=== PATIENT | female | born 1990 | race Two or more races ===

== ENCOUNTER 2016-12-09 18:59 | Emergency (ER) | payer MEDICAID ==
[~2016-12-09] VITALS: Ht 162.6 cm; Wt 65.8 kg
[~2016-12-09 18:59] MED LIST: ALBUPOW26; PREN-129
[2016-12-09 19:05] VITALS: BP 113/73
[2016-12-09 19:43] LABS: Basophils # (auto) 0.1 uL; Basophils % (auto) 0.3 % (0.0-2.0); Eosinophils # (auto) 0 uL; Eosinophils % (auto) 0.1 % (0.0-7.0); Hematocrit 41.2 % (36.0-46.0); Hemoglobin 14.4 g/dL (12.2-16.2); Lymphocytes # (auto) 2.1 uL; Lymphocytes % (auto) 10.2 % (10.0-50.0); Mean Corpuscular Hemoglobin 30.7 pg (28.0-32.0); Mean Corpuscular Volume 87.9 fL (80.0-100.0); Monocytes % (auto) 4.7 % (0.0-12.0); Neutrophils # (auto) 17.4 uL; Neutrophils % (auto) 84.7 % (37.0-80.0); Platelet Count (auto) 439 10^3/uL (140-450); Red Cell Distribution Width 13.1 % (11.6-16.0); White Blood Cell 20.5 10^3/uL (4.4-10.8)
[2016-12-09 19:58] LABS: INR 1.06 (0.9-1.15); Partial Thromboplastin Time 29.4 sec (22.64-33.71); Prothrombin Time 11.6 sec (9.37-12.3)
[2016-12-09 20:02] LABS: Albumin 3.2 g/dL (3.4-5.0); BUN/Creatinine Ratio 6.7; Calcium 8.6 mg/dL (8.5-10.1); Potassium 3.8 mmol/L (3.5-5.1)
[2016-12-09 20:04] LABS: Bilirubin, Total 0.8 mg/dL (0.2-1.0); Total Protein 7.9 g/dL (6.4-8.2)
== END 2016-12-09 21:40 | disposition left against medical advice (07) ==
LOC: ER 19:03
DX: R10.30 Lower abdominal pain, unspecified (principal); R42 Dizziness and giddiness; R11.2 Nausea with vomiting, unspecified; Z53.21 Procedure and treatment not carried out due to patient leaving prior to being seen by health care provider
CPT/HCPCS: 36415; 80053; 82150; 83690; 84702; 85025; 85610; 85730

== ENCOUNTER 2017-04-26 03:16 | Emergency (ER) | payer MEDICAID ==
[~2017-04-26] VITALS: Ht 162.6 cm; Wt 73.3 kg
[2017-04-26 03:45] VITALS: BP 133/97
[2017-04-26 04:14] LABS: Basophils # (auto) 0.1 uL; Basophils % (auto) 0.7 % (0.0-2.0); Eosinophils # (auto) 0.1 uL; Hematocrit 40.7 % (36.0-46.0); Hemoglobin 14.2 g/dL (12.2-16.2); Lymphocytes # (auto) 1.9 uL; Lymphocytes % (auto) 24.5 % (10.0-50.0); Mean Corpuscular Hemoglobin 30.6 pg (28.0-32.0); Mean Corpuscular Volume 87.6 fL (80.0-100.0); Mean Platelet Volume 7.4 fL (6.9-10.8); Monocytes # (auto) 0.6 uL; Monocytes % (auto) 7.5 % (0.0-12.0); Neutrophils # (auto) 5.3 uL; Neutrophils % (auto) 66.3 % (37.0-80.0); Nucleated Red Blood Cells % 0.1 %; Platelet Count (auto) 318 10^3/uL (140-450); Red Cell Distribution Width 14.1 % (11.8-14.3)
[2017-04-26] MEDS ORDERED: AZITHROMYCIN 250 MG TAB PO ONE (04:15)
[2017-04-26] MEDS ORDERED: cefTRIAXone SODIUM 250 MG VL IM ONE (04:15)
[2017-04-26 04:42] LABS: Bilirubin, Total 0.3 mg/dL (0.2-1.0); Potassium 3.3 mmol/L (3.5-5.1)
== END 2017-04-26 04:30 | disposition home or self-care (01) ==
LOC: ER 03:16
DX: N39.0 Urinary tract infection, site not specified (principal); A64 Unspecified sexually transmitted disease; J45.909 Unspecified asthma, uncomplicated; F12.10 Cannabis abuse, uncomplicated; Z90.79 Acquired absence of other genital organ(s)
CPT/HCPCS: 36415; 80053; 81002; 85025; 96372; 99284; J0696

== ENCOUNTER 2018-08-12 17:48 | Emergency (ER) | payer MEDICAID ==
[~2018-08-12] VITALS: Ht 162.6 cm; Wt 59.0 kg
[2018-08-12 17:53] VITALS: BP 149/101
[2018-08-12 18:31] LABS: Basophils # (auto) 0.1 uL; Basophils % (auto) 0.6 % (0.0-2.0); Eosinophils # (auto) 0.2 uL; Eosinophils % (auto) 2.2 % (0.0-7.0); Hematocrit 45.1 % (36.0-46.0); Hemoglobin 15.1 g/dL (12.2-16.2); Lymphocytes # (auto) 1.2 uL; Mean Corpuscular Hemoglobin 29.5 pg (28.0-32.0); Mean Corpuscular Hgb Conc. 33.5 g/dL (32.0-36.0); Monocytes # (auto) 0.6 uL; Monocytes % (auto) 5.1 % (0.0-12.0); Neutrophils # (auto) 9.1 uL; Neutrophils % (auto) 81.1 % (37.0-80.0); Platelet Count (auto) 388 10^3/uL (140-450); Red Blood Cells 5.13 10^6/uL (4.0-5.20); Red Cell Distribution Width 13.4 % (11.8-14.3); White Blood Cell 11.2 10^3/uL (4.4-10.8)
[2018-08-12 18:46] LABS: Albumin 3.5 g/dL (3.4-5.0); BUN/Creatinine Ratio 9.9; Calcium 8.6 mg/dL (8.5-10.1); Potassium 3.9 mmol/L (3.5-5.1)
[2018-08-12 18:49] LABS: Bilirubin, Total 0.4 mg/dL (0.2-1.0); Total Protein 7.9 g/dL (6.4-8.2)
== END 2018-08-12 20:30 | disposition left against medical advice (07) ==
LOC: ER 17:49
DX: R11.2 Nausea with vomiting, unspecified (principal); Z53.21 Procedure and treatment not carried out due to patient leaving prior to being seen by health care provider
CPT/HCPCS: 36415; 80053; 84702; 85025

== ENCOUNTER 2019-07-10 13:30 | Emergency (ER) | payer MEDICAID ==
[~2019-07-10] VITALS: Ht 162.6 cm; Wt 63.5 kg
[2019-07-10 14:11] VITALS: BP 145/94
== END 2019-07-10 15:33 | disposition left against medical advice (07) ==
LOC: ER 13:34
DX: R10.2 Pelvic and perineal pain (principal); Z53.21 Procedure and treatment not carried out due to patient leaving prior to being seen by health care provider

== ENCOUNTER 2020-01-26 02:40 | Emergency (ER) | payer MEDICAID ==
[~2020-01-26] VITALS: Ht 162.6 cm; Wt 61.2 kg
[2020-01-26] MEDS ORDERED: cloNIDine HCL 0.1 MG TAB PO ONE (03:15)
[2020-01-26 04:19] VITALS: BP 164/109
== END 2020-01-26 04:22 | disposition home or self-care (01) ==
LOC: ER 02:41
DX: S10.96XA Insect bite of unspecified part of neck, initial encounter (principal); L02.11 Cutaneous abscess of neck; J45.909 Unspecified asthma, uncomplicated; Z59.0 Homelessness; W57.XXXA Bitten or stung by nonvenomous insect and other nonvenomous arthropods, initial encounter; Y93.89 Activity, other specified; Y92.89 Other specified places as the place of occurrence of the external cause; Y99.8 Other external cause status

== ENCOUNTER 2020-04-25 15:07 | Emergency (ER) | payer MEDICAID ==
[~2020-04-25] VITALS: Ht 162.6 cm; Wt 63.5 kg
[2020-04-25 20:00] VITALS: BP 152/98
== END 2020-04-25 20:35 | disposition home or self-care (01) ==
LOC: ER 15:07
DX: S10.96XA Insect bite of unspecified part of neck, initial encounter (principal); L02.11 Cutaneous abscess of neck; B36.0 Pityriasis versicolor; F17.210 Nicotine dependence, cigarettes, uncomplicated; W57.XXXA Bitten or stung by nonvenomous insect and other nonvenomous arthropods, initial encounter; Y93.89 Activity, other specified; Y92.89 Other specified places as the place of occurrence of the external cause; Y99.8 Other external cause status
CPT/HCPCS: 81025

== ENCOUNTER 2020-06-16 15:46 | Emergency (ER) | payer MEDICAID ==
[~2020-06-16] VITALS: Ht 170.2 cm; Wt 90.7 kg
[2020-06-16] MEDS ORDERED: SODIUM CHLORIDE 0.9% 1,000 ML IV ONE ×2 (16:15→18:00)
[2020-06-16 16:43] LABS: Basophils # (auto) 0 10 ^3/uL (0-0.2); Basophils % (auto) 0.3 % (0.0-2.0); Eosinophils # (auto) 0 10 ^3/uL (0-0.8); Eosinophils % (auto) 0.1 % (0.0-7.0); Hematocrit 32.6 % (36.0-46.0); Hemoglobin 10.6 g/dL (12.2-16.2); Lymphocytes # (auto) 0.8 10 ^3/uL (0.4-5.4); Lymphocytes % (auto) 7.6 % (10.0-50.0); Mean Corpuscular Hemoglobin 24.3 pg (28.0-32.0); Mean Corpuscular Hgb Conc. 32.5 g/dL (32.0-36.0); Mean Corpuscular Volume 74.9 fL (80.0-100.0); Monocytes # (auto) 1.3 10 ^3/uL (0-1.3); Monocytes % (auto) 13.3 % (0.0-12.0); Neutrophils # (auto) 7.9 10 ^3/uL (1.6-8.6); Neutrophils % (auto) 78.7 % (37.0-80.0); Nucleated Red Blood Cells % 0.1 %; Platelet Count (auto) 487 10^3/uL (140-450); Red Blood Cells 4.35 10^6/uL (4.0-5.20); Red Cell Distribution Width 16.1 % (11.8-14.3)
[2020-06-16 16:52] LABS: Albumin 3.1 g/dL (3.4-5.0); Amylase 51 U/L (25-115); Anion Gap 5 (5-15); Blood Urea Nitrogen 5 mg/dL (7-18); Calcium 8.7 mg/dL (8.5-10.1); Carbon Dioxide 29 mmol/L (21-32); Chloride 99 mmol/L (98-107); Glucose 102 mg/dL (74-106); Lipase 106 U/L (73-393); Potassium 3.6 mmol/L (3.5-5.1); Sodium 133 mmol/L (136-145)
[2020-06-16 16:57] LABS: Alanine Aminotransferase 38 U/L (13-56); Alkaline Phosphatase 157 U/L (45-117); Aspartate Aminotransferase 23 U/L (15-37); BUN/Creatinine Ratio 6.4; Bilirubin, Total 0.2 mg/dL (0.2-1.0); GFR African American 114 mL/min; GFR Non-African American 94 mL/min; Total Protein 8.5 g/dL (6.4-8.2)
[2020-06-16 17:03] LABS: Beta HCG, Quantitative < 1 mlU/mL (1-3); Thyroid Stimulating Hormone 0.13 uIU/mL (0.358-3.74)
[2020-06-16] MEDS ORDERED: ACETAMINOPHEN 325 MG TAB PO ONE (17:15)
[2020-06-16] MEDS ORDERED: ONDANSETRON ODT 4 MG TAB PO ONE (18:00)
[2020-06-16] MEDS ORDERED: PANTOPRAZOLE 40 MG TAB PO ONE (18:00)
[2020-06-16] MEDS ORDERED: DOXYCYCLINE 100 MG TAB/CAP PO ONE (18:00)
[2020-06-16] MEDS ORDERED: cefTRIAXone SOD 1,000 MG VL IM ONE (18:00)
[2020-06-16] MEDS ORDERED: LORazepam 0.5 MG TAB PO ONE (18:00)
[2020-06-16 19:12] VITALS: BP 136/85
[2020-06-16 21:45] LABS: Urine Bacteria MOD /hpf (None Seen); Urine Blood Negative /uL (Negative); Urine Budding Yeast FEW /hpf (None Seen); Urine Mucus FEW (None Seen); Urine Specific Gravity 1.013 (1.001-1.035); Urine WBC 26 /hpf (0 - 5)
[2020-06-16 21:46] LABS: Barbiturate Scree,Urine NEGATIVE (NEGATIVE); Benzodiazephine Screen, Urine NEGATIVE (NEGATIVE); Cannabinoid Screen, Urine NEGATIVE (NEGATIVE); Cocaine Screen, Urine NEGATIVE (NEGATIVE); Opiate Scree,Urine NEGATIVE (NEGATIVE); Phencyclidine Screen, Urine NEGATIVE (NEGATIVE)
[2020-06-16 22:16] LABS: Amphetamine Screen, Urine POSITIVE (NEGATIVE)
== END 2020-06-16 20:41 | disposition home or self-care (01) ==
LOC: ER 15:46 → EDBD 15:46 → ER 20:41
DX: U07.1 COVID-19 (principal); K59.00 Constipation, unspecified; D64.9 Anemia, unspecified; K29.70 Gastritis, unspecified, without bleeding; E86.0 Dehydration; F15.10 Other stimulant abuse, uncomplicated; R07.9 Chest pain, unspecified; F17.210 Nicotine dependence, cigarettes, uncomplicated; Z90.49 Acquired absence of other specified parts of digestive tract
CPT/HCPCS: 36415; 71045; 74176; 80053; 80307; 81001; 82150; 83690; 83880; 84443; 84484; 84702; 85025; 87426; 93005; 96360; 96361; 96372; 99285; J0696; J7030; Q0162

== ENCOUNTER → 2020-09-16 | Emergency (ER) | payer MEDICAID ==
[~2020-09-16] VITALS: Ht 162.6 cm; Wt 61.2 kg
[2020-09-16 01:25] VITALS: BP 149/99
[2020-09-16 02:52] LABS: Eosinophils # (auto) 0.2 10 ^3/uL (0-0.8); Monocytes # (auto) 0.5 10 ^3/uL (0-1.3)
[2020-09-16 02:54] LABS: Basophils # (auto) 0.1 10 ^3/uL (0-0.2); Basophils % (auto) 1.1 % (0.0-2.0); Eosinophils % (auto) 3.1 % (0.0-7.0); Hematocrit 34.7 % (36.0-46.0); Hemoglobin 11.1 g/dL (12.2-16.2); Lymphocytes # (auto) 1.4 10 ^3/uL (0.4-5.4); Lymphocytes % (auto) 22.1 % (10.0-50.0); Mean Corpuscular Hemoglobin 23.7 pg (28.0-32.0); Neutrophils # (auto) 4.3 10 ^3/uL (1.6-8.6); Neutrophils % (auto) 66.7 % (37.0-80.0); Platelet Count (auto) 468 10^3/uL (140-450); Red Blood Cells 4.69 10^6/uL (4.0-5.20); White Blood Cell 6.5 10^3/uL (4.4-10.8)
[2020-09-16 03:05] LABS: Albumin 3.7 g/dL (3.4-5.0); Anion Gap 8 (5-15); Blood Urea Nitrogen 11 mg/dL (7-18); Calcium 8.6 mg/dL (8.5-10.1); Carbon Dioxide 27 mmol/L (21-32); Chloride 104 mmol/L (98-107); Glucose 146 mg/dL (74-106); Magnesium 2.1 mg/dL (1.6-2.6); Potassium 4.3 mmol/L (3.5-5.1); Sodium 139 mmol/L (136-145)
[2020-09-16 03:07] LABS: GFR African American 122 mL/min; GFR Non-African American 101 mL/min
[2020-09-16 03:23] LABS: Alanine Aminotransferase 21 U/L (13-56); Alkaline Phosphatase 148 U/L (45-117); Aspartate Aminotransferase 16 U/L (15-37); Bilirubin, Total 0.2 mg/dL (0.2-1.0); Total Protein 8.1 g/dL (6.4-8.2)
[2020-09-16 05:24] LABS: BUN/Creatinine Ratio 15.1
== END | disposition left against medical advice (07) ==
LOC: ER 01:19
DX: R07.89 Other chest pain (principal); Z53.21 Procedure and treatment not carried out due to patient leaving prior to being seen by health care provider
CPT/HCPCS: 36415; 80053; 83735; 84443; 84484; 85025

== ENCOUNTER 2021-10-09 11:24 | Emergency (ER) | payer MEDICAID ==
[~2021-10-09] VITALS: Ht 162.6 cm; Wt 61.2 kg
[2021-10-09 12:18] LABS: Urine Bacteria FEW /hpf (None Seen); Urine Blood TRACE /uL (Negative); Urine Mucus FEW (None Seen); Urine WBC 332 /hpf (0 - 5)
[2021-10-09 12:29] VITALS: BP 140/93
[2021-10-09] MEDS ORDERED: cefTRIAXone SOD 1,000 MG VL IM ONE (13:00)
[2021-10-09] MEDS ORDERED: KETOROLAC TROMETH 60MG/2ML VIAL IM ONE (13:00)
[2021-10-09 13:18] LABS: Basophils # (auto) 0 10 ^3/uL (0-0.2); Basophils % (auto) 0.4 % (0.0-2.0); Eosinophils # (auto) 0.1 10 ^3/uL (0-0.8); Hematocrit 36.8 % (36.0-46.0); Monocytes # (auto) 0.8 10 ^3/uL (0-1.3)
[2021-10-09 13:20] LABS: Eosinophils % (auto) 0.9 % (0.0-7.0); Hemoglobin 11.6 g/dL (12.2-16.2); Lymphocytes % (auto) 8.5 % (10.0-50.0); Mean Corpuscular Hemoglobin 22.9 pg (28.0-32.0); Mean Corpuscular Hgb Conc. 31.6 g/dL (32.0-36.0); Monocytes % (auto) 6.7 % (0.0-12.0); Neutrophils # (auto) 10.1 10 ^3/uL (1.6-8.6); Neutrophils % (auto) 83.5 % (37.0-80.0); Red Blood Cells 5.07 10^6/uL (4.0-5.20); Red Cell Distribution Width 18.1 % (11.8-14.3); White Blood Cell 12.1 10^3/uL (4.4-10.8)
[2021-10-09 13:37] LABS: Albumin 3.3 g/dL (3.4-5.0); Calcium 8.9 mg/dL (8.5-10.1); Potassium 4.3 mmol/L (3.5-5.1)
[2021-10-09 13:41] LABS: BUN/Creatinine Ratio 11.7
[2021-10-09 13:42] LABS: Bilirubin, Total 0.3 mg/dL (0.2-1.0)
[2021-10-09 13:43] LABS: Total Protein 7.7 g/dL (6.4-8.2)
[2021-10-09 13:48] LABS: Mean Corpuscular Volume 72.6 fL (80.0-100.0)
[2021-10-09] MEDS ORDERED: SODIUM CHLORIDE 0.9% 1,000 ML IV ONE (14:00)
== END 2021-10-09 17:45 | disposition home or self-care (01) ==
LOC: ER 11:24
DX: N39.0 Urinary tract infection, site not specified (principal); N20.0 Calculus of kidney; N61.1 Abscess of the breast and nipple; J45.909 Unspecified asthma, uncomplicated; F17.210 Nicotine dependence, cigarettes, uncomplicated; Z90.49 Acquired absence of other specified parts of digestive tract; Z79.899 Other long term (current) drug therapy
CPT/HCPCS: 36415; 74176; 76642; 80053; 81001; 81025; 83605; 85025; 96372; 99284; J1885

== ENCOUNTER 2022-05-30 20:05 | Emergency (ER) | payer MEDICAID | END 2022-05-30 21:50 | disposition left against medical advice (07) | LOC: ER 20:05 | DX: R10.9 Unspecified abdominal pain (principal); Z53.21 Procedure and treatment not carried out due to patient leaving prior to being seen by health care provider ==

== ENCOUNTER 2022-05-31 08:19 | Inpatient (IN) | payer MEDICAID ==
[~2022-05-31] VITALS: Ht 160 cm; Wt 87.0 kg
[2022-05-31] MEDS ORDERED: cefTRIAXone 1GM/50ML D5W 50 ML IV ONE (08:45)
[2022-05-31] MEDS ORDERED: SODIUM CHLORIDE 0.9% 1,000 ML IVB ONE (08:45)
[2022-05-31 09:04] LABS: Eosinophils # (auto) 0 10 ^3/uL (0-0.8); Lymphocytes # (auto) 0.7 10 ^3/uL (0.4-5.4); Lymphocytes % (auto) 4.4 % (10.0-50.0); Monocytes # (auto) 1.2 10 ^3/uL (0-1.3)
[2022-05-31 09:06] LABS: Basophils # (auto) 0.1 10 ^3/uL (0-0.2); Basophils % (auto) 0.4 % (0.0-2.0); Hematocrit 37.7 % (36.0-46.0); Hemoglobin 12.4 g/dL (12.2-16.2); Mean Corpuscular Hemoglobin 26.3 pg (28.0-32.0); Mean Corpuscular Hgb Conc. 32.9 g/dL (32.0-36.0); Monocytes % (auto) 7.4 % (0.0-12.0); Neutrophils # (auto) 14.5 10 ^3/uL (1.6-8.6); Neutrophils % (auto) 87.8 % (37.0-80.0); Red Cell Distribution Width 15.8 % (11.8-14.3); White Blood Cell 16.5 10^3/uL (4.4-10.8)
[2022-05-31 09:18] LABS: Albumin 3.4 g/dL (3.4-5.0); Calcium 8.8 mg/dL (8.5-10.1); Potassium 3.5 mmol/L (3.5-5.1)
[2022-05-31 09:21] LABS: BUN/Creatinine Ratio 7.4; Bilirubin, Total 0.6 mg/dL (0.2-1.0); Total Protein 7.8 g/dL (6.4-8.2)
[2022-05-31 11:16] LABS: Urine Bacteria FEW /hpf (None Seen); Urine Blood TRACE /uL (Negative); Urine WBC 97 /hpf (0 - 5); Urine WBC Clumps PRESENT /hpf (None Seen)
[2022-05-31] MEDS ORDERED: ONDANSETRON HCL 4 MG/2 ML VIAL IV ONE (12:00)
[2022-05-31] MEDS ORDERED: MORPHINE SULFATE 4 MG/ML SYR/VIAL IV ONE (12:00)
[2022-05-31] MEDS ORDERED: KETOROLAC TROMETH 30 MG/ML 1ML VIAL IV ONE (13:00)
[2022-05-31] MEDS ORDERED: ACETAMINOPHEN 325 MG TAB PO PRN (13:00)
[2022-05-31] MEDS ORDERED: HYDROcodone-ACET 5/325MG TAB PO PRN (13:00)
[2022-05-31] MEDS ORDERED: ONDANSETRON HCL 4 MG/2 ML VIAL IV PRN (13:00)
[2022-05-31] MEDS ORDERED: SODIUM CHLORIDE 0.9% 1,000 ML IV ONE (13:30)
[2022-05-31] MEDS: SODIUM CHLORIDE 0.9% 1,000 ML IV SCH ×2 (14:49→21:20)
[2022-05-31] MEDS: ENOXAPARIN SOD 40 MG/0.4 ML SYRINGE SC SCH (14:49)
[2022-05-31 17:05] VITALS: BP 108/58
[2022-05-31 17:43] VITALS: BP 108/58
[2022-05-31] MEDS: KETOROLAC TROMETH 30 MG/ML 1ML VIAL IV PRN (20:03)
[2022-05-31 20:21] VITALS: BP 108/58
[2022-05-31 22:00] VITALS: BP 93/45
[2022-06-01 05:21] LABS: Basophils # (auto) 0 10 ^3/uL (0-0.2); Basophils % (auto) 0.3 % (0.0-2.0); Eosinophils # (auto) 0 10 ^3/uL (0-0.8); Eosinophils % (auto) 0.4 % (0.0-7.0); Hematocrit 33.1 % (36.0-46.0); Hemoglobin 10.7 g/dL (12.2-16.2); Lymphocytes # (auto) 0.8 10 ^3/uL (0.4-5.4); Lymphocytes % (auto) 8.7 % (10.0-50.0); Mean Corpuscular Hemoglobin 26.3 pg (28.0-32.0); Mean Corpuscular Hgb Conc. 32.2 g/dL (32.0-36.0); Mean Corpuscular Volume 81.5 fL (80.0-100.0); Monocytes % (auto) 10.2 % (0.0-12.0); Neutrophils # (auto) 7.7 10 ^3/uL (1.6-8.6); Neutrophils % (auto) 80.4 % (37.0-80.0); Red Blood Cells 4.07 10^6/uL (4.0-5.20); Red Cell Distribution Width 16.1 % (11.8-14.3); White Blood Cell 9.5 10^3/uL (4.4-10.8)
[2022-06-01 05:40] LABS: Albumin 2.7 g/dL (3.4-5.0); Calcium 7.9 mg/dL (8.5-10.1); Potassium 3.7 mmol/L (3.5-5.1)
[2022-06-01 05:45] LABS: Bilirubin, Total 0.7 mg/dL (0.2-1.0); Total Protein 6.1 g/dL (6.4-8.2)
[2022-06-01] MEDS: SODIUM CHLORIDE 0.9% 1,000 ML IV SCH ×2 (06:34→14:28)
[2022-06-01] MEDS: KETOROLAC TROMETH 30 MG/ML 1ML VIAL IV PRN ×2 (06:34→12:37)
[2022-06-01 08:00] VITALS: BP 112/72
[2022-06-01 08:51] VITALS: BP 112/72
[2022-06-01] MEDS ORDERED: cefTRIAXone 1GM/50ML D5W 50 ML IV SCH (09:00)
[2022-06-01] MEDS: ENOXAPARIN SOD 40 MG/0.4 ML SYRINGE SC SCH (11:29)
[2022-06-01 12:40] VITALS: BP 128/81
[2022-06-01] MEDS ORDERED: HYDROcodone-ACET 5/325MG TAB PO PRN (14:00)
[2022-06-01] MEDS ORDERED: MORPHINE SULFATE INJ 2 MG/ml SYRG IV PRN (14:00)
== END 2022-06-01 15:31 | disposition left against medical advice (07) | DRG 463 ==
LOC: ER 08:19 → OVERFLOW 12:56 → EAST 17:01
PROVIDERS: ADMIT Nurse Practitioner Family; ATTEND Nurse Practitioner Family
DX: N10 Acute pyelonephritis (principal); E87.1 Hypo-osmolality and hyponatremia; F17.210 Nicotine dependence, cigarettes, uncomplicated; J45.909 Unspecified asthma, uncomplicated; R73.9 Hyperglycemia, unspecified; R74.8 Abnormal levels of other serum enzymes; Z20.822 Contact with and (suspected) exposure to COVID-19; Z53.29 Procedure and treatment not carried out because of patient's decision for other reasons; Z80.9 Family history of malignant neoplasm, unspecified; Z82.49 Family history of ischemic heart disease and other diseases of the circulatory system; Z83.3 Family history of diabetes mellitus; Z90.49 Acquired absence of other specified parts of digestive tract
CPT/HCPCS: 36415; 74176; 80053; 81001; 81025; 83036; 83605; 83690; 85025; 87040; 87086; 87426; 96365; 96372; 96375; G0378; J0696; J1885; J2405

== ENCOUNTER 2022-06-03 03:26 | Emergency (ER) | payer MEDICAID ==
[~2022-06-03] VITALS: Ht 162.6 cm; Wt 67.0 kg
[2022-06-03 03:26] VITALS: BP 158/111
[2022-06-03 05:01] LABS: Calcium 8.9 mg/dL (8.5-10.1); Potassium 3.3 mmol/L (3.5-5.1)
[2022-06-03 05:04] LABS: Albumin 3.1 g/dL (3.4-5.0); BUN/Creatinine Ratio 9.4
[2022-06-03 05:07] LABS: Bilirubin, Total 0.3 mg/dL (0.2-1.0); Total Protein 8.3 g/dL (6.4-8.2)
[2022-06-03 06:32] LABS: Basophils # (auto) 0 10 ^3/uL (0-0.2); Eosinophils # (auto) 0.2 10 ^3/uL (0-0.8); Lymphocytes # (auto) 1.4 10 ^3/uL (0.4-5.4); Monocytes # (auto) 0.6 10 ^3/uL (0-1.3)
[2022-06-03 06:39] LABS: Basophils % (auto) 0.4 % (0.0-2.0); Eosinophils % (auto) 2.8 % (0.0-7.0); Hematocrit 34.6 % (36.0-46.0); Hemoglobin 11.5 g/dL (12.2-16.2); Lymphocytes % (auto) 19.9 % (10.0-50.0); Mean Corpuscular Hemoglobin 26.5 pg (28.0-32.0); Mean Corpuscular Hgb Conc. 33.3 g/dL (32.0-36.0); Mean Corpuscular Volume 79.5 fL (80.0-100.0); Monocytes % (auto) 8.1 % (0.0-12.0); Neutrophils # (auto) 4.9 10 ^3/uL (1.6-8.6); Neutrophils % (auto) 68.8 % (37.0-80.0); Red Blood Cells 4.35 10^6/uL (4.0-5.20); Red Cell Distribution Width 16.1 % (11.8-14.3); White Blood Cell 7.2 10^3/uL (4.4-10.8)
== END 2022-06-03 09:47 | disposition left against medical advice (07) ==
LOC: ER 03:26
DX: M54.59 Other low back pain (principal); R30.0 Dysuria; Z53.21 Procedure and treatment not carried out due to patient leaving prior to being seen by health care provider
CPT/HCPCS: 36415; 80053; 85025

== ENCOUNTER 2022-07-24 03:27 | Emergency (ER) | payer MEDICAID ==
[~2022-07-24] VITALS: Ht 162.6 cm; Wt 63.6 kg
[2022-07-24 03:31] VITALS: BP 130/94
== END 2022-07-24 05:55 | disposition left against medical advice (07) ==
LOC: ER 03:27
DX: T19.2XXA Foreign body in vulva and vagina, initial encounter (principal); Z53.21 Procedure and treatment not carried out due to patient leaving prior to being seen by health care provider; W22.8XXA Striking against or struck by other objects, initial encounter; Y93.89 Activity, other specified; Y92.89 Other specified places as the place of occurrence of the external cause; Y99.8 Other external cause status

== ENCOUNTER 2023-12-11 14:37 | Emergency (ER) | payer MEDICAID ==
[~2023-12-11] VITALS: Ht 162.6 cm; Wt 77.3 kg
[~2023-12-11 14:37] MED LIST changes: +DOXY-286 PO; +NITR-87 PO
[2023-12-11 15:20] VITALS: BP 143/89; RESP 16; TEMP 98; O2SAT 97
[2023-12-11 17:25] LABS: Urine Bacteria FEW /hpf (None Seen); Urine Blood Negative /uL (Negative); Urine Clarity Clear (Clear); Urine Color Light-Yellow (Yellow); Urine Protein, UAD Negative (Negative); Urine Specific Gravity 1.034 (1.001-1.035); Urine Urobilinogen Normal (Negative); Urine WBC 4 /hpf (0 - 5)
[2023-12-11 17:32] LABS: Amphetamine Screen, Urine Pos (NEGATIVE)
[2023-12-11 17:33] LABS: Barbiturate Scree,Urine Neg (NEGATIVE); Benzodiazephine Screen, Urine Neg (NEGATIVE); Cannabinoid Screen, Urine Neg (NEGATIVE); Cocaine Screen, Urine Neg (NEGATIVE); Opiate Scree,Urine Neg (NEGATIVE); Phencyclidine Screen, Urine Neg (NEGATIVE)
[2023-12-11 18:26] VITALS: PULSE 94
[2023-12-11] MEDS ORDERED: ACET-1080 PO (18:28)
[2023-12-11] MEDS: ACETAMINOPHEN 500 MG TAB PO ONE (18:29)
== END 2023-12-11 18:34 | disposition home or self-care (01) ==
LOC: ER 14:37
DX: O26.891 Other specified pregnancy related conditions, first trimester (principal); R10.2 Pelvic and perineal pain; S39.011A Strain of muscle, fascia and tendon of abdomen, initial encounter; R73.9 Hyperglycemia, unspecified; J45.909 Unspecified asthma, uncomplicated; F17.210 Nicotine dependence, cigarettes, uncomplicated; F12.10 Cannabis abuse, uncomplicated; F15.10 Other stimulant abuse, uncomplicated; Z90.49 Acquired absence of other specified parts of digestive tract; Z79.899 Other long term (current) drug therapy; Z3A.01 Less than 8 weeks gestation of pregnancy; X50.0XXA Overexertion from strenuous movement or load, initial encounter; Y93.89 Activity, other specified; Y92.89 Other specified places as the place of occurrence of the external cause; Y99.8 Other external cause status
CPT/HCPCS: 36415; 76801; 76817; 80307; 81001; 81025; 84702

== ENCOUNTER 2024-04-18 04:18 | Observation (INO) | payer MEDICAID ==
[~2024-04-18 04:18] MED LIST changes: +ACET-1080 PO
== END 2024-04-18 04:26 | disposition left against medical advice (07) ==
LOC: LDRP 04:18
PROVIDERS: ADMIT Obstetrics & Gynecology; ATTEND Obstetrics & Gynecology
DX: O46.92 Antepartum hemorrhage, unspecified, second trimester (principal); Z3A.24 24 weeks gestation of pregnancy

== ENCOUNTER 2024-05-20 09:59 | Observation (INO) | payer MEDICAID ==
[2024-05-20] MEDS ORDERED: LACTATED RINGER'S 1,000 ML IV SCH (10:15)
[2024-05-20] MEDS ORDERED: DEXTROSE (50%) 50ML SYRG IV PRN (10:15)
[2024-05-20] MEDS: MAGNESIUM SULFATE 100 ML IV ONE (10:27)
[2024-05-20] MEDS: BETAMETHASONE ACET (30mg/5ml) 5ml Vial 6mg/ml IM ONE (10:29)
[2024-05-20] MEDS ORDERED: LORazepam 2MG/ML-1ML VIAL IV ONE (10:30)
[2024-05-20] MEDS: InsuLIN REG 1unit/0.01ml Soln (100units/ml) SC SCH (10:45)
[2024-05-20] MEDS: MAGNESIUM SULFATE 40MG/ML 1,000 ML IV SCH (10:48)
[2024-05-20] MEDS ORDERED: PREN-96 PO (11:05)
[2024-05-20 11:06] LABS: Basophils # (auto) 0 10 ^3/uL (0-0.2); Basophils % (auto) 0.4 % (0.0-2.0); Eosinophils # (auto) 0.1 10 ^3/uL (0-0.8); Eosinophils % (auto) 1.4 % (0.0-7.0); Hematocrit 37.1 % (36.0-46.0); Hemoglobin 12.7 g/dL (12.2-16.2); Lymphocytes # (auto) 1.2 10 ^3/uL (0.4-5.4); Lymphocytes % (auto) 18.4 % (10.0-50.0); Mean Corpuscular Hemoglobin 31.3 pg (28.0-32.0); Mean Corpuscular Hgb Conc. 34.2 g/dL (32.0-36.0); Mean Corpuscular Volume 91.6 fL (80.0-100.0); Monocytes # (auto) 0.4 10 ^3/uL (0-1.3); Monocytes % (auto) 6.9 % (0.0-12.0); Neutrophils # (auto) 4.6 10 ^3/uL (1.6-8.6); Neutrophils % (auto) 72.9 % (37.0-80.0); Nucleated Red Blood Cells % 0.1 %; Platelet Count (auto) 265 10^3/uL (140-450); Red Blood Cells 4.05 10^6/uL (4.0-5.20); Red Cell Distribution Width 13.9 % (11.8-14.3); White Blood Cell 6.3 10^3/uL (4.4-10.8)
[2024-05-20] MEDS ORDERED: INSUINJ3 SC (11:06)
[2024-05-20 11:21] LABS: Alanine Aminotransferase 180 U/L (7-40); Albumin 3.2 g/dL (3.2-4.8); Alkaline Phosphatase 276 U/L (46-116); Anion Gap 7 (5-15); Aspartate Aminotransferase 110 U/L (13-40); BUN/Creatinine Ratio 10.8 (10.0-20.0); Bilirubin, Total 0.3 mg/dL (0.2-1.0); Blood Urea Nitrogen 7 mg/dL (9-23); Calcium 9.5 mg/dL (8.7-10.4); Carbon Dioxide 21 mmol/L (20-31); Chloride 104 mmol/L (98-107); Glucose 358 mg/dL (74-106); Potassium 4.1 mmol/L (3.5-5.1); Sodium 132 mmol/L (136-145); Total Protein 6.3 g/dL (5.7-8.2)
[2024-05-20] MEDS ORDERED: MAGNESIUM SULFATE 40MG/ML 1,000 ML IV ONE (11:22)
[2024-05-20] MEDS ORDERED: MAGNESIUM SULFATE 100 ML IV ONE (11:22)
--- NOTE | 2024-05-20 11:27 | DVH ---
Procedure: US OB ULTRASOUND COMP GTR 14 WKS 05/20/2024 10:26 AM HISTORY: Vaginal blled, labor COMPARISON: US OB ULTRASOUND COMP LESS 14WKS on DOS: 12/11/23 TECHNIQUE: Sonogram of the gravid uterus was performed. FINDINGS: Single living intrauterine gestation. Presentation: Cephalic Placenta: Posterior heart rate: 167 bpm YOLANDA: 12.9 cm Maternal cervix: Closed, 4 cm in length in the transabdominal study Other: Fluid noted in the vaginal cuff. The following measurements were obtained: BPD: 7 cm corresponding to 28 weeks and 2 days HC: 26.3 cm corresponding to 28 weeks and 4 days AC: 28.2 cm corresponding to 32 weeks and 2 days FL: 5.2 cm corresponding to 27 weeks and 4 days Average ultrasound age: 28 weeks and 5 days GABRIELA by ultrasound: 08/07/2024 Estimated weight: 1521 g corresponding to 90th percentile IMPRESSION: 1. Single currently living intrauterine gestation, as described above. 2. Estimated weight of 1521 g. 3. Posterior placenta with no evidence for previa or abruption. 4. Moderate amount of fluid is seen in the vaginal cuff. The cervix is closed measuring 4 cm in lengt h in the transabdominal study.
[2024-05-20 11:31] LABS: Uric Acid 2.5 mg/dL (3.1-7.8)
[2024-05-20 11:32] LABS: INR 0.92 (0.9-1.15); Partial Thromboplastin Time 27.6 SEC (24.5-34.5); Prothrombin Time 9.8 sec (9.3-11.8)
[2024-05-20] MEDS: ceFAZolin 2 GM/D5W50ml 50 ML IV ONE (11:45)
[2024-05-20 11:46] LABS: Urine Bacteria None Seen /hpf (None Seen)
[2024-05-20] MEDS ORDERED: ACCU-CHEK COMFORT CURVE STRIP VI SCH (12:00)
--- NOTE | 2024-05-20 12:03 | DVHHP2 ---
OB CC & HPI Date Date of Admission: May 20, 2024 Patient Identification: : 7 Para: 4 EDC: Aug 05, 2024 EGA: 29WKS Chief Complaints: Reason for admission: IUP - Admission Nurse Assessment Rev: No History of Present Complaints PT IS ADMITTED FOR PTL,NO ROM ,PT STATES SHE SEES A FEMALE DOCTOR IN [place]. HGBA1C IS 9.8 AND SHE IS PREGEST DM BUT WAS NOT AWARE.SHE HAS HEP C NOT TREATED. PT WAS TREATED FOR SYPHILIS X3 INJECTIONS RECENTLY.SHE IS A METH USER AND NONCOMPLIANT, HER ULTRASOUND REVEALS EFW OF 1521G ,WITH 4CM CERVIX,VX AND YOLANDA OF 13CM Past Medical History Cardiac: No pertinent Hx Pulmonary: No pertinent Hx Central Nervous System: No pertinent Hx GI: No pertinent Hx Hemotology/Oncology: No pertinent Hx Hepatobiliary: No pertinent Hx Psychiatric: No pertinent Hx Musculoskeletal: No pertinent Hx Rheumotologic: No pertinent Hx Infectious Disease: No peritnent Hx ENT: No pertinent Hx Renal/: No pertinent Hx Endocrine: No pertinent Hx Dermatology: No pertinent Hx Others PREGEST DM,HEP C,PREG DM,SYPHILIS POS , TREATED Past Surgical History: No pertinent Hx OB History OB History Care: None Ultrasounds: No ultrasounds, Normal mid trimester US Obstetrical Complications: Gestational Diabetes, Other (PREGEST DM) Allergies: Coded Allergies: No Known Drug Allergy (Verified Allergy, Unknown, 04/05/24) Home Meds Active Scripts Acetaminophen (Tylenol 8 Hour Arthritis) 650 Mg Tab, 650 MG PO TID, #30 TAB Prov:MERCEDEZ PIERSON 12/11/23 Reported Medications Insulin Regular (Human) (Humulin R U-500 (Concentr) 500 Unit/Ml Inj, 12 UNIT SC AC, INJ 05/20/24 Vit W/ Ferrous Fumara () Tab, DAILY 04/21/12 Albuterol (Albuterol) Pow 11/27/09 Current Medications Current Medications Medications (Trade) Dose Ordered Sig/Lashell Route PRN Reason Start Time Stop Time Status Last Admin Lactated Ringer's 1,000 ml @ 125 mls/hr Q8H IV 05/20/24 10:15 Diagnostic Test (Pha) (Accu-Chek Comfort Curve T) 1 strip IQ4HR 05/20/24 12:00 Insulin Human Regular (InsuLIN R) IQ4HR SC 05/20/24 12:00 05/20/24 10:45 Dextrose 50 ml UD PRN IV Blood Sugar LESS THAN 60 05/20/24 10:15 Magnesium Sulfate 1,000 ml @ 50 mls/hr Q20H IV 05/20/24 10:30 05/20/24 10:48 Family & Social History Family/Social History Blood Type: Unknown Rubella: unknown RPR/VDRL: Unknown GBS Status: Unknown HBsAG: Unknown Review of Systems Constitutional: No symptom reported Ears, Nose, & Throat: No symptom reported Eyes: No symptom reported Pulmonary/Respiratory: No symptom reported Cardiovascular: No symptom reported Gastrointestinal: No symptom reported Genitourinary: No symptom reported Musculoskeletal: No symptom reported Skin: No symptom reported Psychiatric: No symptom reported Endocrine: No symptom reported Hemotologic/Lymphatic: No symptom reported OB Admission Exam Physical Exam Cervical Dilatation: Fingertip Effacement: 25% Station: -3 Membranes: Intact Heart Rate: 130's Accelerations: Accelerations Present Decelerations: No Decelerations Short Term Variability: Present Intermediate Variability: Average (6-25) Contractions on Admission: < 5 Minutes Apart Intensity: Mild OB Plan Plan Admitting Diagnosis: IUP AT 29 WKS WITH PTL,METH USER,HEP C POS,PTL HX OF SYPHILIS TREATED Other Plan: MG,CELESTONE,ABX TRANSFER TO HIGHER LEVEL OF CARE NAGA TIAN DO May 20, 2024 12:03
[2024-05-20 12:09] LABS: Amphetamine Screen, Urine Pos (NEGATIVE); Barbiturate Scree,Urine Neg (NEGATIVE); Benzodiazephine Screen, Urine Neg (NEGATIVE)
[2024-05-20 12:10] LABS: Cocaine Screen, Urine Neg (NEGATIVE)
[2024-05-20 12:11] LABS: Cannabinoid Screen, Urine Neg (NEGATIVE); Opiate Scree,Urine Neg (NEGATIVE); Phencyclidine Screen, Urine Neg (NEGATIVE)
[2024-05-20 12:25] LABS: Urine Blood Negative /uL (Negative); Urine Clarity Clear (Clear); Urine Color Light-Yellow (Yellow); Urine Protein, UAD Negative (Negative); Urine Specific Gravity 1.036 (1.001-1.035); Urine Urobilinogen Normal (Negative); Urine WBC <1 /hpf (0 - 5)
[2024-05-21 09:07] LABS: Rubella Antibodies, IgG <0.90 index (Immune >0.99)
--- NOTE | 2024-05-21 11:05 | DVHTS ---
Transfer Summary Transfer Summary Date of Admission May 20, 2024 at 09:59 Date of Transfer: May 20, 2024 Transfer Diagnosis ptl,pregest dm labor hepc ,no care drug use ,meth pos syphilis treated Brief Hx & Hospital Course: pt admitted for ptl,vag bleeding and due to poor pnc as well as prematurity pt will be transferred Transfer to: [facility] Discharge Instructions: via ambulance Transfer Status stable Date of Service: May 20, 2024 Billing Provider: NAGA TIAN DO Common Visit Codes: 56543-[id number] INP/OBS CARE (HIGH) NAGA TIAN DO May 21, 2024 11:05
--- NOTE | 2024-05-21 11:06 | DVHDS2 ---
Physician Discharge Progress N Final Diagnosis: Transfer to higher level of care Operations or Procedures: Operations or Procedures nst,sono,labs Condition on Discharge: Higher Level of Care Disposition: Acute Care Facility Discharge Instructions: Diet: Consistent carbohydrate Activity: Light activity Medications: na Follow Up Care: Specialist: óscar stock Discharge Statement: "Patient was advised to return to the ER or call 911 if any headaches, dizziness, shortness of breath, chest pain, abdominal pain, bleeding, fevers, or worsening of medical condition. Patient was counseled about treatment plan, medications, possible side effects, patientverbalized understanding. All questions were answered to the best of my ability. This discharge took greater then 30 minutes in planning, reviewing documentation, counseling the patient, and discussing with other team members." NAGA TIAN DO May 21, 2024 11:06
== END 2024-05-20 13:21 | disposition home or self-care (01) ==
LOC: LDRP 09:59
PROVIDERS: ADMIT Obstetrics & Gynecology; ATTEND Obstetrics & Gynecology
DX: O09.93 Supervision of high risk pregnancy, unspecified, third trimester (principal); O98.413 Viral hepatitis complicating pregnancy, third trimester; B19.20 Unspecified viral hepatitis C without hepatic coma; O60.03 Preterm labor without delivery, third trimester; O24.419 Gestational diabetes mellitus in pregnancy, unspecified control; O98.113 Syphilis complicating pregnancy, third trimester; A53.9 Syphilis, unspecified; O46.93 Antepartum hemorrhage, unspecified, third trimester; Z3A.29 29 weeks gestation of pregnancy; Z91.199 Patient's noncompliance with other medical treatment and regimen due to unspecified reason; Z87.891 Personal history of nicotine dependence; Z86.2 Personal history of diseases of the blood and blood-forming organs and certain disorders involving the immune mechanism; Z79.899 Other long term (current) drug therapy
CPT/HCPCS: 36415; 59025; 76805; 80053; 80307; 81001; 82948; 82962; 83036; 83735; 84550; 85025; 85610; 85730; 86592; 86703; 86762; 86803; 86850; 86900; 86901; 87340; 94762; 96365; 96366; 96368; 96372; G0378; J0690; J0702; J3475; 96360; 96361